=== PATIENT | male | born 1995 | race Hispanic/Latino ===

== ENCOUNTER 2024-09-30 10:06 | Emergency (ER) | payer SELFPAY ==
[~2024-09-30] VITALS: Ht 167.6 cm; Wt 72.2 kg
[2024-09-30] MEDS ORDERED: AMOXICILLIN500 MG PO (11:16)
[2024-09-30] MEDS ORDERED: TAMIFLU75 MG PO (11:17)
[2024-09-30] MEDS ORDERED: CORICIDIN COLD1 EACH PO (11:18)
[2024-09-30 11:26] VITALS: PULSE 98; RESP 16; O2SAT 97
[2024-09-30] MEDS: IBUPROFEN 600 MG TAB PO STA (11:34)
[2024-09-30 11:35] VITALS: TEMP 101.8
== END 2024-09-30 11:35 | disposition home or self-care (01) ==
LOC: FSED 10:10
DX: R50.9 Fever, unspecified (principal); J10.1 Influenza due to other identified influenza virus with other respiratory manifestations; J02.0 Streptococcal pharyngitis; R05.9 Cough, unspecified; R51.9 Headache, unspecified; Z11.52 Encounter for screening for COVID-19
CPT/HCPCS: 0223U; 83518; 87400; 99283